=== PATIENT | female | born 1960 | race American Indian/Alaskan Native ===

== ENCOUNTER 2017-06-22 17:28 | Emergency (ER) | payer BC ==
[2017-06-22] MEDS ORDERED: TORADOL IM ONE (23:38)
[2017-06-22] MEDS ORDERED: DELTASONE PO ONE (23:38)
--- NOTE | 2017-06-22 23:38 | Emergency Department Report ---
Upper Extremity - HPI Chief Complaint: Extremity Injury, Upper Stated Complaint: LEFT ARM PAIN Time Seen by Provider: 06/22/17 23:38 Upper Extremity: Left Arm (pain radiating up left arm after falling), Left Elbow (pain and swelling to left elbow after falling), Left Forearm (pain to left forearm after falling.) Occurred When: >5 Days (18 days ago on 06/05/2017) Mechanism: Fall Symptoms: Yes Pain with Movement (left forearm and elbow radiating up left arm) , Yes Limited Range of Movement (left elbow), Yes Numbness (burning pain), Yes Weakness (left upper extremity), Yes Swelling (patient reports that her left elbow was very swollen and bruised), No Deformity, No Bruising/Ecchymosis ( initially with accident), No Laceration or Abrasion Other History: Patient reports that on 06/05/2017 she was at work and she sustained accidental fall. She said that she injured her left elbow and upper forearm and she has pain radiating up her left arm. She reports that initially after accident she was off work and her elbow was swollen and and she use ice and ibuprofen which reduce swelling she said that also she had some bruising to upper forearm and elbow area. Patient said now she is having pain that feels like nerve pain to her forearm elbow radiating up her inner left arm. Pain is 10/10 and burning. Reports tingling without any numbness. She's taken ibuprofen now but it does not help her pain. She said they had her on light duty since she injured her left elbow and forearm but the pain is not getting any better. Denies any fever or chills. Denies any restriction in movement to left wrist hand or fingers of left hand. Pain is better with rest and worse with movement ED Review of Systems ROS: Stated complaint: LEFT ARM PAIN Other details as noted in HPI Comment: All other systems reviewed and negative Constitutional: no symptoms reported Respiratory: no symptoms reported Cardiovascular: denies: chest pain, palpitations, dyspnea on exertion, edema, syncope, paroxysmal nocturnal dyspnea Gastrointestinal: denies: abdominal pain, nausea, vomiting, diarrhea Genitourinary: denies: dysuria, hematuria Musculoskeletal: joint swelling, arthralgia, myalgia. denies: back pain Skin: other (bruising and swellling initially but none now) Neurological: weakness, paresthesias. denies: headache, numbness, confusion, abnormal gait, vertigo ED Past Medical Hx - Past Medical History Previous Medical History?: Yes Additional medical history: arm pain pain after a fall - Surgical History Past Surgical History?: No - Family History Family history: no significant - Social History Smoking Status: Current Every Day Smoker Substance Use Type: Non Opiate Pain - Medications Home Medications: Home Medications Medication Instructions Recorded Confirmed Last Taken Type HYDROcodone/ACETAMINOPHEN [[place] 1 each PO Q6H PRN #16 tablet 06/23/17 Unknown Rx 5-325 Tablet] Ibuprofen [Motrin] 800 mg PO Q8HR PRN #21 tablet 06/23/17 Unknown Rx Upper Extremity Exam - Exam General: Vital signs noted. No distress. Alert and acting appropriately. This is a 56-year-old female well-nourished well-developed in no acute distress. She is nontoxic in appearance Head and Torso: No HEENT Abnormality (normal exam), No Neck Tenderness (normal exam, no C-spine tenderness for range of motion), No Chest/Lungs Abnormality ( clear to auscultation bilaterally, no chest wall tenderness), No Abdominal Tenderness (nontender to palpate in all quadrants and normal bowel sounds. No CVA tenderness), No Back Tenderness (vertebral or paraspinal tenderness) Shoulder Exam: Yes Normal Range of Motion in Shoulder, No Shoulder Tenderness ( normal exam and full range of motion), No Clavicle Tenderness (normal exam), No Shoulder Deformity, No AC Joint Tenderness Arm Exam: Yes Arm/Humerus Tenderness (tender to palpate to left inner forearm which is muscular tenderness without any bony tenderness), No Arm Deformity Elbow: Yes Elbow Tenderness (mild swelling to left elbow with bony tenderness.) , No Normal Range of Motion in Elbow (Limited range of motion to left elbow. 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 I spoke with Dr. Lopes who is orthopedic doctor and he said since patient had fracture for over 2 weeks it is better for her to be in a sling until follow-up with him this week. I discussed this with patient and she is in agreement Reevaluation #2: 06/23/17 00:58 Left upper extremity sling placed. Patient with +2 pulses radial and ulnar. Limited range of motion to left elbow otherwise no neurovascular compromise - Consultations Consultation #1: 06/23/17 00:47 Dr. Hany Lopes orthopedic - Orthopedic Splinting/Casting Injury #1 Side: left Upper Extremity Injury Location: elbow, forearm Upper Extremity Immobilizer: sling/shoulder immobilize ED Medical Decision Making - Radiology Data Radiology results: report reviewed X-ray of left forearm reveal there is an impacted fracture of the distal radial head X-ray of left elbow reveals acute nondisplaced intra-articular fracture of the radial head which are moderate joint effusion. The evaluation of the fat pads compatible with a traumatic joint effusion. The surrounding soft tissues otherwise unremarkable. - Medical Decision Making ED course: Patient here status post fall at work 18 days ago and now presents to the emergency room for the first time complaining of burning pain that feels like nerve pain to her left elbow and forearm and pain is also radiating from her elbow to her left arm. Patient attempted to treat injury at home by using ice initially and then she said she was rotate ice and warmth and also took ibuprofen but she said the pain now is worse. X-ray report of left elbow and left forearm revealed impacted fracture of left radial head, nondisplaced, intra -articular with traumatic joint effusion at left elbow. Positive fat pad sign. Patient was given Deltasone 60 mg by mouth and Toradol 60 mg IM for pain which helped a little. I spoke with Dr. Hany Lopes's orthopedic doctor traction power engineer and he said since injury happened 6 weeks ago is better if patient have arm sling instead of splint. He wants patient to be followed in his office in a couple days and also said that patient will need to have physical therapy. I discussed with the patient and she is in agreement. Please refer to procedure note for details on splint . Patient is experiencing symptoms of nerve pain with left hand diamond driller helper less than right hand diamond driller helper. She has normal sensation. Pain with active range of motion to the left elbow. Positive left elbow joint swelling. Patient discharged home in stable condition with prescription for [place] and Motrin and to follow-up with Dr. Lopes in 2 days. Critical care attestation.: If time is entered above; I have spent that time in minutes in the direct care of this critically ill patient, excluding procedure time. ED Disposition Clinical Impression: Arthralgia of multiple sites, Paresthesia of left upper extremity, Work place accident Fracture of radial head, left, closed Qualifiers: Encounter type: initial encounter Fracture alignment: nondisplaced Qualified Code(s): S52.125A - Nondisplaced fracture of head of left radius, initial encounter for closed fracture Disposition: DC-01 TO HOME OR SELFCARE Is pt being admited?: No Does the pt Need Aspirin: No Condition: Stable Instructions: Elbow Fracture in Adults (ED), Arthralgia (ED), Paresthesia (ED) , Musculoskeletal Pain (ED) Additional Instructions: Please wear left upper extremity sling until evaluated by orthopedic doctor Take [place] for pain but please do not drive or operate heavy machinery while doing this as a cause drowsiness. Take for severe pain . Take Motrin for mild to moderate pain. Please follow-up with Dr. Hany Lopes was orthopedic doctor. Call later this morning to schedule an appointment to see on 06/24 Prescriptions: HYDROcodone/ACETAMINOPHEN [[place] 5-325 Tablet] 1 each PO Q6H PRN #16 tablet PRN Reason: severe pain Ibuprofen [Motrin] 800 mg PO Q8HR PRN #21 tablet PRN Reason: mild to moderate pain Referrals: HANY LOPES MD [Staff Physician] - 06/24/17 Forms: Work/School Release Form(ED)
--- NOTE | 2017-06-23 00:10 | XRay Report ---
FINAL REPORT EXAM: XR ELBOW 3+V LT HISTORY: fall with left elbow pain TECHNIQUE: Three views of the left elbow were submitted. FINDINGS: There is an acute nondisplaced intra-articular fracture of the radial head. There are no additional fractures. There elevation of the fat pads compatible with a traumatic joint effusion. The surrounding soft tissues otherwise are unremarkable. IMPRESSION: Acute nondisplaced intra-articular fracture of the radial head with traumatic joint effusion.
--- NOTE | 2017-06-23 00:12 | XRay Report ---
FINAL REPORT PROCEDURE: XR FOREARM LT TECHNIQUE: LEFT forearm radiographs, AP and lateral views. CPT 64240 HISTORY: left forearm pain COMPARISON: No prior studies are available for comparison. FINDINGS: Fracture (s) and/or Dislocation(s): There is an impacted fracture of the radial head. The remainder of the osseous structures are intact.. Joint space(s): Normal . Soft tissues: Normal . Bone mineralization: Normal . Foreign bodies: None . IMPRESSION: There is an impacted fracture of the radial head.
[2017-06-23 02:36] VITALS: BP 159/75
== END 2017-06-23 01:40 | disposition home or self-care (01) ==
LOC: ED 17:28
DX: S52.125A Nondisplaced fracture of head of left radius, initial encounter for closed fracture (principal); F17.200 Nicotine dependence, unspecified, uncomplicated; W17.89XA Other fall from one level to another, initial encounter; Y93.89 Activity, other specified; Y92.89 Other specified places as the place of occurrence of the external cause; Y99.8 Other external cause status
CPT/HCPCS: 73080; 73090; 96372; 99284; J1885; J7512

== ENCOUNTER 2018-06-18 09:08 | Outpatient (CLI) | payer OTHER ==
--- NOTE | 2018-06-18 13:49 | Ultrasound Report ---
ULTRASOUND EXTREMITY NONVASCULAR LEFT HISTORY: Lateral epicondylitis. Patient feels popping in left elbow during flexion and extension. TECHNIQUE: Grayscale ultrasound. FINDINGS: Correlation is made with the left elbow films dated 06/22/17. I personally scanned this patient after consulting with the apparatus engineering technologist. Dynamic imaging of the triceps tendon and its insertion on the olecranon are within normal limits on flexion and extension. There is no evidence for a tendon abnormality. Dynamic imaging was also performed at the insertion site of the extensor tendons near the lateral upper condyle. The tendinous structures in this there are also within normal limits on flexion and extension. There is no evidence for ganglion cyst or enlarged bursa. No obvious explanation for the popping noise or sensation during movement. Trace joint effusion was noted at the left elbow. IMPRESSION: Unremarkable dynamic imaging of the extensor complex and triceps tendon as described above.
== END 2018-06-18 09:09 | disposition home or self-care (01) ==
LOC: US 09:08
PROVIDERS: ATTEND Orthopaedic Surgery
DX: M77.12 Lateral epicondylitis, left elbow (principal)